=== PATIENT | female | born 1965 | race Caucasian/White ===

== ENCOUNTER → 2020-08-19 | Outpatient (CLI) | payer BC ==
--- NOTE | 2020-08-23 12:36 | SLEEPCENT ---
DATE: 08/19/2020 ORDERED BY: Esha Cagle 8 hours and 14 minutes of data were reviewed. There were 343 minutes of sleep identified. Sleep latency was mildly prolonged at 20 minutes. REM latency more so prolonged at 261 minutes. Sleep architecture showed some fragmentation early in the study, sleep became more consolidated later in the night, and there were two long REM cycles noted. Overall sleep efficiency was 70.4%. The electrocardiogram showed a sinus rhythm with an average heart rate of 78 beats per minute, rate range 64 to 98. EEG showed reasonably normal waveforms for wake and sleep. There were only 18 respiratory events identified of 10 seconds in duration or greater for an apnea-hypopnea index within normal limits at 3.1. The events seen were hypopneic and were more frequent in the supine posture. Arousals from respiratory events occurred 4.7 times per hour when arousals from snoring were included, and there were no significant oxygen desaturations below 90%. There was some mild activity in the limb leads. No trains of events appreciated. Limb movement arousal index was 5.2. IMPRESSION: Normal nocturnal polysomnography with snoring. Edited: [email or web address] 08/24/2020 0832 MTDD
== END ==
LOC: M SLEEP 20:00
PROVIDERS: ATTEND Nurse Practitioner Family
DX: R06.83 Snoring (principal); R40.0 Somnolence

== ENCOUNTER → 2024-06-08 | Outpatient (CLI) | payer BC | LOC: M RAD 16:28 | PROVIDERS: ATTEND Otolaryngology | DX: J32.9 Chronic sinusitis, unspecified (principal) ==